=== PATIENT | female | born 1995 | race Hispanic/Latino ===

== ENCOUNTER 2019-01-18 23:38 | Emergency (ER) | payer SELFPAY ==
[~2019-01-18 23:38] MED LIST: Iopamidol 370 76% 100 ML VIAL ONE
[2019-01-19 00:06] LABS: #Basophils 0.1 thou/uL (0.0-0.2); #Eosinphils 0.3 thou/uL (0.0-0.7); #Lymphocytes 3.6 thou/uL (1.20-3.40); #Monocytes 0.8 thou/uL (0.11-0.59); #Neutrophils 4.8 thou/uL (1.40-6.50); %Basophils 1.5 % (0.0-1.0); %Eosinophils 3.3 % (0.0-10.0); %Lymphocytes 37.1 % (21.0-51.0); %Monocytes 8.5 % (0.0-10.0); %Neutrophils 49.6 % (42.0-75.0); Mean Corpuscular HGB CONC 30.8 g/dL (32.0-36.0); Mean Corpuscular Hemoglobin 25.4 pg (27.0-31.0); Mean Corpuscular Volume 82.4 fL (78.0-98.0); Mean Platelet Volume 6.5 fL (7.4-10.4); Platelet Count 311 thou/uL (130-400); RBC Distribution Width 13.4 % (11.5-14.5); Red Blood Cell (RBC) Count 4.74 mill/uL (4.20-5.40); White Blood Cell (WBC) Count 9.6 thou/uL (4.8-10.8)
[2019-01-19] MEDS ORDERED: Ketorolac Tromethamine 30 MG/ML VIAL ONE (00:11)
[2019-01-19 00:12] LABS: ALT (SGPT) 15 U/L (8-55); AST (SGOT) 16 U/L (5-34); Albumin 4.6 g/dL (3.5-5.0); Alkaline Phosphatase 69 U/L (40-110); Anion Gap 14 mmol/L (10-20); BUN (Urea Nitrogen) 12 mg/dL (7.0-18.7); Bilirubin, Total 0.2 mg/dL (0.2-1.2); CK (CPK) 124 U/L (29-168); Calc. Creatinine Clearance 0 mL/min (70-130); Calcium 9.9 mg/dL (7.8-10.44); Carbon Dioxide 25 mmol/L (22-29); Chloride 103 mmol/L (98-107); Estimated GFR-MDRD 81; Globulin 2.6 g/dL (2.4-3.5); Glucose 120 mg/dL (70-105); Potassium 3.2 mmol/L (3.5-5.1); Protein, Total 7.2 g/dL (6.0-8.3); Sodium 139 mmol/L (136-145)
[2019-01-19 00:29] LABS: Pregnancy Test - Urine (BHCG) Negative (Negative)
[2019-01-19 00:30] LABS: Bilirubin Negative (Negative); Blood, Urine Trace (Negative); Clarity Hazy (Clear); Glucose, Urine (Dipstick) Negative (Negative); Leukocyte Small (Negative); Nitrite Negative (Negative); Pregu Control Background? CLEAR/WHITE (CLR/WHITE); Pregu Control Bar Appear? YES (CONTROL BAR); Protein, Urine (Dipstick) Negative (Neg-Trace); Urobilinogen 0.2 mg/dL (Less than 2)
[2019-01-19 00:34] LABS: Bacteria/HPF 1+ HPF (None Seen); RBC/HPF 0-3 HPF (0-3); Squamous Epithelial 0-3 HPF (0-3)
--- NOTE | 2019-01-19 08:11 | RAD ---
EXAM: CHEST ONE VIEW HISTORY: Chest pain. COMPARISON: None FINDINGS: The cardiac silhouette and pulmonary vasculature is within normal limits. The lungs are clear. The os seous structures are intact. IMPRESSION: No acute cardiopulmonary process.
--- NOTE | 2019-01-19 08:37 | CT ---
PRELIMINARY REPORT/[facility]/EMERGENCY AFTER HOURS PROCEDURE: PROCEDURE INFORMATION: Exam: CT Abdomen and pelvis with contrast Exam date and time: 01/19/2019 12:52 AM Clinical history: 23 years old, female; Abdominal pain; Epigastric; Additional info: PT presents stating she, "feels like she has a knot in the center of her chest while driving". 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 Symptoms are localized, most severe in the epigastrium. TECHNIQUE: Imaging protocol: Computed tomography of the abdomen and pelvis with intravenous contrast. Radiation optimization: All CT scans at this facility use at least one of these dose optimization techniques: automated exposure control; mA and/or kV adjustment per patient size (includes targeted e xams where dose is matched to clinical indication); or iterative reconstruction. Contrast material: ISOVUE 370; Contrast volume: 96 ml; Contrast route: LEFT AC; COMPARISON: No relevant prior studies available. FINDINGS: Liver: No acute findings. No mass. Gallbladder and bile ducts: The gallbladder is contracted. No ductal dilation. Pancreas: No acute findings. No mass. No ductal dilation. Spleen: No acute findings. No mass. Adrenals: No acute findings. No mass. Kidneys and ureters: No acute findings. No mass. No hydronephrosis. Stomach and bowel: No obstruction. Appendix: No evidence of appendicitis. Intraperitoneal space: No free air. No significant fluid collection. Vasculature: No acute findings. No abdominal aortic aneurysm. Lymph nodes: No significant lymphadenopathy. Bladder: No acute findings. Reproductive: Left ovarian probable cyst measuring 4.5 cm. Bones/joints: No acute fracture. Soft tissues: No acute findings. IMPRESSION: No acute findings. Probable left ovarian cyst. Thank you for allowing us to participate in the care of your patient. Dictated and Authenticated by: Robert Hutchins MD 01/19/2019 1:54 AM Central Time ([place] & [place]) FINAL REPORT EMERGENT AFTER HOURS CT ABDOMEN AND PELVIS: HISTORY: Chest pain. Discomfort is most severe in the epigastric region. COMPARISON: None. IMPRESSION: 1. Approximately 4.5 cm left adnexal cystic structure which does demonstrate attenuation coefficient compatible with a cyst. This probably represents a left ovarian cyst. Followup pelvic ultrasound i s suggested in 6-8 weeks. 2. No acute findings are seen in the abdomen or pelvis. 3. Findings are in agreement with the preliminary report by [facility]. POS: OFF
== END 2019-01-19 02:14 | disposition home or self-care (01) ==
LOC: NAV ERS 23:38
DX: R10.13 Epigastric pain (principal); D64.9 Anemia, unspecified
CPT/HCPCS: 71045; 74177; 80053; 81003; 81015; 81025; 82550; 83690; 84484; 85025; 93005; 96374; J1885; Q9967